=== PATIENT | female | born 1995 | race Caucasian/White ===

== ENCOUNTER 2023-12-10 21:40 | Inpatient (IN) | payer OTHER ==
[2023-12-10] MEDS ORDERED: OXYTOCIN 20 UNITS in 0.9% NS 20 UNIT/1,000 ML INFUS.BAG IV ONE (21:53)
[2023-12-10] MEDS ORDERED: LIDOCAINE HCL 1% PRESERVATIVE FREE - 30ML VIAL ONE (21:53)
[2023-12-10] MEDS: OXYTOCIN 20 UNITS in 0.9% NS 20 UNIT/1,000 ML INFUS.BAG IV SCH (22:06)
[2023-12-10] MEDS ORDERED: BENZOCAINE 28 GM HEMORRHOIDAL OINTMENT TP PRN (22:32)
[2023-12-10] MEDS ORDERED: WITCH HAZEL 50% (TUCKS) 40 PAD/JAR PAD TP PRN (22:32)
[2023-12-10] MEDS ORDERED: ACETAMINOPHEN 325 MG TABLET (FP) PO PRN (22:32)
[2023-12-10 22:52] LABS: CORD BASE EXCESS -4.4 mmol/L (0-2); CORD PCO2 40.1 mmHg (30-78); CORD pH 7.337 (7.14-7.44)
[2023-12-10 23:36] LABS: BASO % 0.2 % (0-2.0); EOS % 0.1 % (0-4.5); HEMATOCRIT 35.3 % (32.4-45.2); MCH 30.1 pg (25.7-33.7); MCHC 34.1 g/dl (32.0-36.0); MEAN CELL VOLUME 88.3 fl (80-96); MEAN PLT VOLUME 10.1 fl (7.5-11.1); MONO % 4.5 % (3.8-10.2); NEUT % 90.2 % (42.8-82.8); PLATELET COUNT 213 10^3/uL (134-434); RDW 13.8 % (11.6-15.6); WHITE BLOOD COUNT 16.8 K/mm3 (4.0-10.0)
[2023-12-10 23:55] LABS: INR 0.97 (0.83-1.09); PROTHROMBIN TIME (PATIENT) 11.2 SEC (9.7-13.0)
[2023-12-10 23:56] LABS: ACTIVATED PTT 26.2 SECONDS (25.2-36.5); POTASSIUM 4.3 mmol/L (3.5-5.1)
[2023-12-10 23:57] LABS: CALCIUM 8.7 mg/dL (8.5-10.1)
[2023-12-11 00:01] LABS: CREATININE 0.7 mg/dL (0.55-1.3)
[2023-12-11 00:04] VITALS: BMI 27.3
[2023-12-11 00:37] VITALS: RESP 18
[2023-12-11] MEDS: IBUPROFEN 600 MG TABLET (FP) PO PRN (03:21)
[2023-12-11] MEDS: LEVOTHYROXINE NA 150 MCG TABLET PO SCH (06:00)
[2023-12-11 06:50] LABS: BASO % 0.3 % (0-2.0); EOS % 0.2 % (0-4.5); HEMOGLOBIN 11.3 GM/dL (10.7-15.3); LYMPH % 12.5 % (8-40); MCH 29.8 pg (25.7-33.7); MCHC 33.4 g/dl (32.0-36.0); MEAN CELL VOLUME 89.2 fl (80-96); MEAN PLT VOLUME 10.1 fl (7.5-11.1); MONO % 10.1 % (3.8-10.2); NEUT % 76.9 % (42.8-82.8); PLATELET COUNT 191 10^3/uL (134-434); RBC 3.81 M/mm3 (3.60-5.2); RDW 13.8 % (11.6-15.6); WHITE BLOOD COUNT 15.7 K/mm3 (4.0-10.0)
[2023-12-11] MEDS: FLU VACCINE (FLULAVAL) PF 60 MCG/0.5 ML SYRINGE 2023-2024 IM ONE (15:42)
[2023-12-11] MEDS: DIPHTH,PERTUSS(ACELL),TET 0.5 ML DISP.SYRIN IM ONE (15:43)
[2023-12-12] MEDS: LEVOTHYROXINE NA 75 MCG TABLET (FP) PO SCH (07:14)
[2023-12-12 22:08] VITALS: TEMP 97.5
[2023-12-13 10:12] VITALS: BP 113/55; PULSE 88
== END 2023-12-13 13:30 | disposition home or self-care (01) | DRG 560 ==
LOC: JDEL 21:40 → JLDR 21:45 → J3W 12-11 00:41
PROVIDERS: ADMIT Obstetrics & Gynecology Maternal & Fetal Medicine; ATTEND Obstetrics & Gynecology Maternal & Fetal Medicine
PROC: 10E0XZZ Delivery of Products of Conception, External Approach (ICD-10-PCS; principal; 2023-12-10)
PROC: 0KQM0ZZ Repair Perineum Muscle, Open Approach (ICD-10-PCS; 2023-12-10)
DX: O99.284 Endocrine, nutritional and metabolic diseases complicating childbirth (principal); E03.9 Hypothyroidism, unspecified; O70.1 Second degree perineal laceration during delivery; O99.12 Other diseases of the blood and blood-forming organs and certain disorders involving the immune mechanism complicating childbirth; D68.61 Antiphospholipid syndrome; Z3A.38 38 weeks gestation of pregnancy; Z37.0 Single live birth
CPT/HCPCS: 36415; 36600; 80048; 82803; 85025; 85610; 85730; 86780; 86850; 86900; 86901; 90686; 90715; G0008